=== PATIENT | female | born 1935 | race Caucasian/White ===

== ENCOUNTER 2016-05-03 10:05 | Outpatient (CLI) | payer OTHER ==
--- NOTE | 2016-05-03 11:02 | DIAGNOSTIC IMAGING REPORT ---
PROCEDURE: XR CHEST 2 VIEW INDICATION: EYE EXAM TECHNIQUE: PA and lateral views. COMPARISON: None. FINDINGS: Lungs are clear. Heart and mediastinum are normal. Thorax is normal. Left humeral claudine. IMPRESSION: 1. Negative chest.
== END 2016-05-03 23:00 ==
LOC: LAB SRH 10:05
DX: H20.021 Recurrent acute iridocyclitis, right eye (principal)
CPT/HCPCS: 90074; 90257; 95059; 95150; 97360; 98480